=== PATIENT | female | born 1970 | race American Indian/Alaskan Native ===

== ENCOUNTER 2021-02-11 20:06 | Emergency (ER) | payer OTHER, MEDICARE ==
[2021-02-12 00:40] VITALS: BP 169/87
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
== END 2021-02-12 01:00 | disposition home or self-care (01) ==
LOC: ED 20:06
DX: M54.2 Cervicalgia (principal); M54.5 Low back pain; F17.200 Nicotine dependence, unspecified, uncomplicated; V49.59XA Passenger injured in collision with other motor vehicles in traffic accident, initial encounter; Y93.89 Activity, other specified; Y92.89 Other specified places as the place of occurrence of the external cause; Y99.8 Other external cause status
CPT/HCPCS: 99281